=== PATIENT | female | born 1940 | race Caucasian/White ===

== ENCOUNTER → 2023-11-20 06:32 | Day surgery (SDC) | payer MEDICARE, OTHER, SELFPAY | LOC: GI 06:32 | PROVIDERS: ATTENDING PHYSICIAN Internal Medicine Gastroenterology; FAMILY PHYSICIAN Internal Medicine Geriatric Medicine | DX: Z12.11 Encounter for screening for malignant neoplasm of colon (principal); K64.8 Other hemorrhoids; K57.30 Diverticulosis of large intestine without perforation or abscess without bleeding; D12.2 Benign neoplasm of ascending colon; Z86.010 Personal history of colon polyps; Z80.0 Family history of malignant neoplasm of digestive organs | CPT/HCPCS: 45380; 88305 ==

== ENCOUNTER → 2024-05-01 09:47 | Outpatient (REF) | payer MEDICARE, OTHER, SELFPAY ==
[2024-05-01 10:19] LABS: % Basophils 1.3 % (0-2); % Eosinophils 3.4 % (0-6); % Immature Granulocytes 0.2 % (0-0.5); % Lymphocytes 23.7 % (20.5-51.1); % Monocytes 8.2 % (1.7-9.3); % Neutrophils 63.2 % (42.2-75.2); Absolute Basophils 0.1 10^3/uL (0-0.2); Absolute Eosinophils 0.2 10^3/uL (0-0.7); Absolute Lymphocytes 1.3 10^3/uL (1.2-3.4); Absolute Monocytes 0.5 10^3/uL (0.1-0.6); Absolute Neutrophils 3.5 10^3/uL (1.4-6.5); Hematocrit 37.2 % (37.0-47.0); Hemoglobin 13.1 g/dL (12.0-16.0); Mean Corp Hgb Conc. 35.2 g/dL (33.0-37.0); Mean Corpuscular Hgb 35.3 pg (27.0-31.0); Mean Corpuscular Volume 100.3 fL (81.0-99.0); Mean Platelet Volume 9.3 fL (7.4-10.4); Nucleated Red Blood Cells % 0 %; Platelet Count 211 10^3/uL (130-400); Red Blood Cell Count 3.71 10^6/uL (4.20-5.40); Red Cell Dist. Width 13.8 % (11.5-14.5); White Blood Cell Count 5.6 10^3/uL (4.8-10.8)
[2024-05-01 10:28] LABS: ALT (SGPT) 22 U/L (0-35); AST (SGOT) 24 U/L (14-36); Albumin 4.4 g/dl (3.5-5.0); Alkaline Phosphatase 46 U/L (38-126); Blood Urea Nitrogen 29 mg/dl (7-17); Carbon Dioxide 26 mmol/L (22-30); Chloride 102 mmol/L (98-107); Glucose 95 mg/dl (70-99); Potassium 4.1 mmol/L (3.5-5.1); Sodium 139 mmol/L (135-145); Total Bilirubin 0.7 mg/dl (0.2-1.3); Total Cholesterol 212 mg/dl (50-199); Total Protein 6.8 g/dl (6.3-8.2); Triglyceride 57 mg/dl (10-149); Very Low Density Lipoprotein 11 mg/dl (0-30); eGFR 45.19
[2024-05-01 10:52] LABS: HDL Cholesterol 126 mg/dl; LDL Cholesterol, Calculated 75 mg/dl
== END ==
LOC: REG 09:47
PROVIDERS: ATTENDING PHYSICIAN Physician Assistant Medical; FAMILY PHYSICIAN Nurse Practitioner Primary Care
DX: I11.9 Hypertensive heart disease without heart failure (principal); E78.49 Other hyperlipidemia; I49.3 Ventricular premature depolarization; I49.1 Atrial premature depolarization; I47.10 Supraventricular tachycardia, unspecified
CPT/HCPCS: 36415; 80053; 80061; 82088; 84244; 84443; 85025

== ENCOUNTER → 2024-05-27 13:15 | Outpatient (REF) | payer MEDICARE, OTHER, SELFPAY ==
[2024-05-27 15:31] LABS: Blood Urea Nitrogen 20 mg/dl (7-17); Calcium 10.2 mg/dl (8.4-10.2); Carbon Dioxide 25 mmol/L (22-30); Chloride 102 mmol/L (98-107); Glucose 90 mg/dl (70-99); Potassium 4.6 mmol/L (3.5-5.1); Sodium 138 mmol/L (135-145); eGFR 56.25
[2024-05-27 15:48] LABS: Vitamin D, 25-OH*** 75.8 ng/mL (30-80)
== END ==
LOC: REG 13:15
PROVIDERS: ATTENDING PHYSICIAN Internal Medicine Cardiovascular Disease; FAMILY PHYSICIAN Nurse Practitioner Primary Care
DX: Z79.899 Other long term (current) drug therapy (principal); R79.89 Other specified abnormal findings of blood chemistry; I11.9 Hypertensive heart disease without heart failure
CPT/HCPCS: 36415; 80048; 82306

== ENCOUNTER → 2024-08-20 13:10 | Outpatient (REF) | payer MEDICARE, OTHER, SELFPAY | LOC: RAD 13:10 | PROVIDERS: ATTENDING PHYSICIAN Nurse Practitioner Primary Care | DX: M85.89 Other specified disorders of bone density and structure, multiple sites (principal) | CPT/HCPCS: 77080 ==

== ENCOUNTER → 2024-11-07 14:51 | Outpatient (REF) | payer MEDICARE, OTHER, SELFPAY ==
[2024-11-07 16:10] LABS: Blood Urea Nitrogen 43 mg/dl (7-17); Calcium 11.3 mg/dl (8.4-10.2); Carbon Dioxide 25 mmol/L (22-30); Chloride 103 mmol/L (98-107); Glucose 94 mg/dl (70-99); Potassium 5.3 mmol/L (3.5-5.1); Sodium 138 mmol/L (135-145); eGFR 37.33
== END ==
LOC: REG 14:51
PROVIDERS: ATTENDING PHYSICIAN Internal Medicine Cardiovascular Disease; FAMILY PHYSICIAN Internal Medicine Geriatric Medicine
DX: I11.9 Hypertensive heart disease without heart failure (principal)
CPT/HCPCS: 36415; 80048

== ENCOUNTER → 2024-11-18 15:28 | Outpatient (REF) | payer MEDICARE, OTHER, SELFPAY ==
[2024-11-18 16:29] LABS: Blood Urea Nitrogen 46 mg/dl (7-17); Calcium 10.9 mg/dl (8.4-10.2); Carbon Dioxide 28 mmol/L (22-30); Chloride 103 mmol/L (98-107); Glucose 95 mg/dl (70-99); Potassium 5.2 mmol/L (3.5-5.1); Sodium 135 mmol/L (135-145)
== END ==
LOC: REG 15:28
PROVIDERS: ATTENDING PHYSICIAN Internal Medicine Cardiovascular Disease; FAMILY PHYSICIAN Internal Medicine Geriatric Medicine
DX: I11.9 Hypertensive heart disease without heart failure (principal)
CPT/HCPCS: 36415; 80048; 83735

== ENCOUNTER → 2024-12-11 14:54 | Outpatient (REF) | payer MEDICARE, OTHER, SELFPAY ==
[2024-12-11 15:58] LABS: Blood Urea Nitrogen 34 mg/dl (7-17); Calcium 10.3 mg/dl (8.4-10.2); Carbon Dioxide 24 mmol/L (22-30); Chloride 105 mmol/L (98-107); Glucose 91 mg/dl (70-99); Magnesium 2.1 mg/dl (1.6-2.3); Potassium 4.4 mmol/L (3.5-5.1); Sodium 139 mmol/L (135-145); eGFR 44.91
== END ==
LOC: REG 14:54
PROVIDERS: ATTENDING PHYSICIAN Nurse Practitioner; FAMILY PHYSICIAN Internal Medicine Geriatric Medicine
DX: I11.9 Hypertensive heart disease without heart failure (principal); I49.8 Other specified cardiac arrhythmias
CPT/HCPCS: 36415; 80048; 83735

== ENCOUNTER → 2025-06-09 12:37 | Outpatient (REF) | payer MEDICARE, OTHER, SELFPAY ==
[2025-06-09 13:12] LABS: Hematocrit 41.2 % (37.0-47.0); Hemoglobin 13.7 g/dL (12.0-16.0); Mean Corp Hgb Conc. 33.3 g/dL (33.0-37.0); Mean Corpuscular Volume 104.6 fL (81.0-99.0); Nucleated Red Blood Cells % 0 %; Platelet Count 231 10^3/uL (130-400); Red Cell Dist. Width 14.3 % (11.5-14.5)
[2025-06-09 13:37] LABS: ALT (SGPT) 22 U/L (0-35); AST (SGOT) 21 U/L (14-36); Albumin 4.5 g/dl (3.5-5.0); Alkaline Phosphatase 53 U/L (38-126); Blood Urea Nitrogen 23 mg/dl (7-17); Calcium 10.3 mg/dl (8.4-10.2); Carbon Dioxide 28 mmol/L (22-30); Chloride 104 mmol/L (98-107); Glucose 100 mg/dl (70-99); Potassium 4.9 mmol/L (3.5-5.1); Sodium 137 mmol/L (135-145); Total Protein 7.6 g/dl (6.3-8.2); Very Low Density Lipoprotein 22 mg/dl (0-30); eGFR > 60.00
[2025-06-09 13:47] LABS: HDL Cholesterol 125 mg/dl; LDL Cholesterol, Calculated 76 mg/dl
[2025-06-09 13:54] LABS: Vitamin D, 25-OH*** 71.7 ng/mL (30-80)
[2025-06-09 14:44] LABS: Folate 16.1 ng/ml (2.76-20); Vitamin B12 930 pg/ml (239-931)
== END ==
LOC: REG 12:37
PROVIDERS: ATTENDING PHYSICIAN Nurse Practitioner Primary Care; FAMILY PHYSICIAN Internal Medicine Geriatric Medicine
DX: I11.9 Hypertensive heart disease without heart failure (principal); M85.89 Other specified disorders of bone density and structure, multiple sites; E55.9 Vitamin D deficiency, unspecified; R20.2 Paresthesia of skin; R71.8 Other abnormality of red blood cells; N18.31 Chronic kidney disease, stage 3a; E83.52 Hypercalcemia
CPT/HCPCS: 36415; 80053; 80061; 82306; 82330; 82607; 82746; 83970; 85025

== ENCOUNTER → 2025-06-18 12:30 | Outpatient (REF) | payer MEDICARE, OTHER, SELFPAY | LOC: RAD 12:30 | PROVIDERS: ATTENDING PHYSICIAN Nurse Practitioner Primary Care | DX: N18.31 Chronic kidney disease, stage 3a (principal); N32.81 Overactive bladder; K52.9 Noninfective gastroenteritis and colitis, unspecified | CPT/HCPCS: 76770; 87045; 87046; 87324; 87328; 87329; 87427; 87449; 89055 ==